=== PATIENT | male | born 1930 | race Caucasian/White ===

== ENCOUNTER → 2016-09-22 | Outpatient (CLI) | payer MEDICARE, BC ==
[~2016-09-22] MED LIST: ALBUTEROL17 GM INH; ATENOLOL PO; AZITHROMYCIN250 MG PO; FLOMAX0.4 M1 PO; LEVAQUIN750 MG PO; OXYGEN; PREDNISONE PO; PRESERVISION A1 EAC1 PO; SPIRIVA18 MCG INH; SYMBICORT INH
--- NOTE | ~2016-09-22 | NM69 ---
[facility] A Service of [facility] & [facility] RADIOLOGY TEXT RESULTS PATIENT: ELSIE HENRIQUEZ LOCATION: [facility] : 30 UNIT #: [id number] AGE: [address]: Maribel Bowling SEX: M ORDER DR: [id number] [facility] [address] [place], [place] [address] [id number] O MR#: [id number] Acc #: [id number] NAME: ELSIE HENRIQUEZ : 1930 SEX: M STUDY DATE/TIME: 09/22/2016 11:38 UNIT: [facility] ROOM: STUDY DESCRIPTION: NM Pulm Vent and Perf Attending Physician: Maribel Bowling A.P.R.N. Referring Physician: Maribel Bowling A.P.R.N. Ordering Physician: Maribel Bowling A.P.R.N. Primary Care Physician: Donna Acevedo M.D. MEDICAL IMAGING REPORT This report is preliminary unless electronic signature is present EXAM VQ scan 09/22/2016 INDICATIONS History of lung cancer status post radiation therapy through May 2016. COPD. Shortness of air since August 2016. TECHNIQUE Ventilation images were obtained after the administration of 31.8 mCi of technetium-99m DTPA aerosol. Corresponding perfusion images were obtained after the IV administration of 520 mCi of technetium-99m MAA. COMPARISON Comparison made with a chest x-ray 09/22/2016 at 1109 hours. FINDINGS There is extremely poor tracer distribution on the ventilation images with scattered areas of clumping, in keeping with the patient's severe COPD. Perfusion images are quite heterogeneous, as well. However, no clear VQ mismatches are seen. The study is low probability for pulmonary embolism. IMPRESSION Low probability for pulmonary embolism. Findings are in keeping with severe emphysema. Dictated by... Mazin Simmons Jr., M.D. THIS IS AN ELECTRONICALLY VERIFIED REPORT Mazin Simmons Jr., M.D. at 09/22/2016 4:45 PM ROBE/mani STS. [facility] A Service of [facility] & [facility] RADIOLOGY TEXT RESULTS PATIENT: ELSIE HENRIQUEZ LOCATION: [facility] : 30 UNIT #: [id number] AGE: [address]: Maribel Bowling SEX: M ORDER DR: TD: 09/22/2016 13:11 JOB #: [id number] MEDICAL IMAGING REPORT Page 1 of 1 COPY
--- NOTE | ~2016-09-22 | CR63 ---
[facility] A Service of [facility] & [facility] RADIOLOGY TEXT RESULTS PATIENT: ELSIE HENRIQUEZ LOCATION: [facility] : 30 UNIT #: [id number] AGE: [address]: Maribel Bowling SEX: M ORDER DR: [id number] [facility] [address] [place], [place] [address] [id number] O MR#: [id number] Acc #: [id number] NAME: ELSIE HENRIQUEZ : 1930 SEX: M STUDY DATE/TIME: 09/22/2016 11:09 UNIT: [facility] ROOM: STUDY DESCRIPTION: CR Chest 2 View Attending Physician: Maribel Bowling A.P.R.N. Referring Physician: Maribel Bowling A.P.R.N. Ordering Physician: Maribel Bowling A.P.R.N. Primary Care Physician: Donna Acevedo M.D. MEDICAL IMAGING REPORT This report is preliminary unless electronic signature is present EXAM 2-view chest INDICATIONS Chronic respiratory failure. Shortness of air. History of lung cancer. FINDINGS PA and lateral views of the chest compared to chest CT 06/03/2016 and chest radiograph dated 01/13/2016. There is increasing density in the right lower lobe. This may represent a superimposed pneumonia or progression of the patient's known pulmonary malignancy. There is background emphysema. Patient has a small right pleural effusion. Left lung is clear. IMPRESSION 1. Increased density in the right lower lobe may represent a superimposed pneumonia or progression of the patient's known pulmonary malignancy/metastatic disease. 2. Small right pleural effusion. 3. Consider CT scan of the chest to further evaluate. Dictated by... Luiz Collier M.D. THIS IS AN ELECTRONICALLY VERIFIED REPORT Luiz Collier M.D. at 09/22/2016 4:31 PM RPRichy/parthr TD: 09/22/2016 13:52 JOB #: [id number] MEDICAL IMAGING REPORT Page 1 of 1 COPY
== END | disposition home or self-care (01) ==
LOC: CNUC 10:50
DX: J96.10 Chronic respiratory failure, unspecified whether with hypoxia or hypercapnia (principal); J98.4 Other disorders of lung; J90 Pleural effusion, not elsewhere classified
CPT/HCPCS: 71020; 78582; A9540; A9567

== ENCOUNTER → 2016-09-30 | Outpatient (CLI) | payer MEDICARE, BC ==
--- NOTE | ~2016-09-30 | CT57 ---
[facility] A Service of [facility] & [facility] RADIOLOGY TEXT RESULTS PATIENT: ELSIE HENRIQUEZ LOCATION: [facility] : 30 UNIT #: [id number] AGE: [address]: Renato Hensley MD SEX: M ORDER DR: [id number] [facility] [address] [place], [place] [address] [id number] O MR#: [id number] Acc #: [id number] NAME: ELSIE HENRIQUEZ : 1930 SEX: M STUDY DATE/TIME: 09/30/2016 13:01 UNIT: [facility] ROOM: STUDY DESCRIPTION: CT Chest Wo Cont Attending Physician: Renato Hensley M.D. Referring Physician: Renato Hensley M.D. Ordering Physician: Renato Hensley M.D. Primary Care Physician: Parvin Acevedo MEDICAL IMAGING REPORT This report is preliminary unless electronic signature is present EXAM CT scan of the chest without contrast INDICATION Followup lung cancer. Shortness of breath for 1.5 months. Radiation therapy, May 2016. TECHNIQUE CT scan of the chest was performed without contrast. Coronal and sagittal reformatted images were obtained. This CT examination was performed with one or more of the following radiation dose reduction techniques: automatic exposure control, adjustment of mA and/or kV according to patient size, and iterative reconstruction. COMPARISON 06/01/2016, 12/11/2015. FINDINGS Background emphysema. The medial right lower lobe mass like density measures about 2.9 x 2.6 cm on today's study. It is smaller than December 2015 and not significantly changed compared with the most recent study. It is unclear if there is any residual viable tumor within this region or if this is simply just postradiation change or if this is a combination of postradiation change and viable tumor. There are new curvilinear and band like parenchymal densities within the right lower lobe with some adjacent pleural based thickening and consolidation which is most suggestive of postradiation change. Similar findings are seen in the right middle lobe. There is no evidence for any new mass or nodule. Coronary artery calcification. Limited imaging of the upper abdomen demonstrates a cyst in the right kidney. The bone windows are unremarkable. [facility]. [facility] A Service of [facility] RADIOLOGY TEXT RESULTS PATIENT: ELSIE HENRIQUEZ LOCATION: [facility] : 30 UNIT #: [id number] AGE: [address]: Renato Hensley MD SEX: M ORDER DR: IMPRESSION 1. The dominant mass-like density in the medial right lower lobe is not significantly changed in size overall compared with the most recent study and is smaller compared with December 2015. It is unclear if this represents just simply postradiation change or if there is any residual viable tumor in the setting of background postradiation change. Continued followup is recommended 2. There are new bandlike and curvilinear parenchymal densities within the right lower and right middle lobe which most likely represent some postradiation change. 3. No evidence of any new mass, nodule or lymphadenopathy. Dictated by... Marcus Tijerina M.D. THIS IS AN ELECTRONICALLY VERIFIED REPORT Marcus Tijerina M.D. at 10/01/2016 9:29 AM MANI/adelita TD: 10/01/2016 08:16 JOB #: [id number] MEDICAL IMAGING REPORT Page 1 of 1 COPY
== END | disposition home or self-care (01) ==
LOC: CCAT 12:38
DX: C34.90 Malignant neoplasm of unspecified part of unspecified bronchus or lung (principal)
CPT/HCPCS: 71250

== ENCOUNTER → 2016-10-13 | Day surgery (SDC) | payer MEDICARE, BC ==
--- NOTE | ~2016-10-13 | OR ---
Unit #: [id number] #: [id number] Patient: ELSIE HENRIQUEZ [id number] [address] [place], [place] [address] [id number] O MR#: [id number] NAME: ELSIE HENRIQUEZ ROOM: Date of Procedure: 10/13/2016 Admission Date: 10/13/2016 Surgeon: Chris Dejesus M.D. : 1930 Attending Physician: Chris Dejesus M.D. Primary Care Physician: Donna Acevedo M.D. OPERATIVE REPORT PROCEDURE PERFORMED Flexible fiberoptic bronchoscopy. INDICATION High FiO2 needs and abnormal CT scan. FINDINGS Evidence of chronic bronchitis. Significant copious mucus plugs, right lower lobe and right middle lobe. Erythematous mucosa, right lower lobe, but no definite tumor identified. SEDATION MAC. CONDITION AFTER PROCEDURE Stable to recovery room. COMPLICATIONS Zero. DESCRIPTION OF PROCEDURE The patient was brought to the endoscopy suite and monitored for heart rate, blood pressure, saturations, and tidal CO2. Sedated with MAC, please see their notes for details. He was anesthetized with 2% lidocaine in both nares. Viscous lidocaine was applied to his right naris. Bronchoscope was introduced without difficulty. Vocal cords were visualized. There were normal configuration and motion, anesthetized x2. Main trachea was intubated. Main airways were anesthetized. The patient had some cough throughout the procedure despite adequate topical anesthesia. Airways revealed evidence of chronic bronchitis. No endobronchial lesions were seen. All subsegments identified. He had significant mucus and mucus plugs, particularly right lower lobe. These were removed. He was left with very erythematous, friable mucosa, but no definite tumor. This is likely secondary to inflammatory changes from infection and inflammation, and no biopsy was performed. BAL was performed in right middle lobe in standard fashion with 60 mL aliquots instilled x2, with reasonable return. Bronchoscope was removed without difficulty, and the patient was in stable condition post procedure. Dictated by... Chris Dejesus M.D. Unit #: [id number] #: [id number] Patient: ELSIE HENRIQUEZ WOL/modl TD: 10/13/2016 12:11 JOB #: [id number] CC: Renato Hensley M.D. OPERATIVE REPORT Page 1 of 1 X Chris Dejesus MD PROCEDURE OPERATIVE NOTE
[2016-10-13 08:47] LABS: BASOPHIL% 0.3 % (0-2.5); EOSINOPHIL# 0.1 X10e3 (0-0.7); EOSINOPHIL% 2.3 % (0.0-7.0); HEMATOCRIT 39.3 % (38.0-50.0); HEMOGLOBIN 12.7 gm/dL (13.0-16.0); LYMPHOCYTE# 0.4 X10e3 (1.0-3.5); LYMPHOCYTE% 6.5 % (17.0-45.0); MEAN CELL VOLUME 97.5 FL (83-96); MEAN CORPUSCULAR HEMOGLOBIN 31.5 PG (28-34); MEAN CORPUSCULAR HGB CONC 32.4 g/dL (30-36); MEAN PLATELET VOLUME 7.5 FL (6.5-11.5); MONOCYTE# 0.6 X10e3 (0-1.0); MONOCYTE% 9.5 % (3.0-12.0); NEUTROPHIL% 81.4 % (40-75); PLATELET COUNT 183 X10e3 (140-420); RED BLOOD COUNT 4.03 X10e (3.90-5.60); RED CELL DISTRIBUTION WIDTH 15.4 % (11.0-15.5); WHITE BLOOD COUNT 6.1 X10e3 (4.0-10.5)
[2016-10-13 08:48] LABS: DIFF IND NO
[2016-10-13 09:00] LABS: PARTIAL THROMBOPLASTIN TIME 28.6 SECONDS (23.5-31.3); PROTHROMBIN TIME (PATIENT) 10.1 SECONDS (9.6-11.5)
[2016-10-13 10:44] LABS: BODY FLUID SOURCE BRONCHIAL LAVAGE
[2016-10-13 10:45] LABS: BODY FLUID APPEARANCE CLOUDY
== END | disposition home or self-care (01) ==
LOC: COPS 07:54
PROVIDERS: Internal Medicine
DX: J44.1 Chronic obstructive pulmonary disease with (acute) exacerbation (principal); J96.11 Chronic respiratory failure with hypoxia; T17.590A Other foreign object in bronchus causing asphyxiation, initial encounter; Z85.118 Personal history of other malignant neoplasm of bronchus and lung; Z92.3 Personal history of irradiation; Z87.01 Personal history of pneumonia (recurrent); Z88.0 Allergy status to penicillin; Z88.2 Allergy status to sulfonamides; Z79.899 Other long term (current) drug therapy; Z79.51 Long term (current) use of inhaled steroids; X58.XXXA Exposure to other specified factors, initial encounter
CPT/HCPCS: 85025; 85610; 85730; 87070; 87102; 87106; 87116; 87205; 87206; 88108; 88305; 89051; J0171